=== PATIENT | female | born 1965 | race African-American/Black ===

== ENCOUNTER 2019-01-21 21:40 | Emergency (ER) | payer OTHER ==
[~2019-01-21] VITALS: Ht 157.5 cm; Wt 65.8 kg
[2019-01-21 21:51] VITALS: BP 141/89
== END 2019-01-21 22:30 | disposition home or self-care (01) ==
LOC: ER 21:40
DX: S50.12XA Contusion of left forearm, initial encounter (principal); X58.XXXA Exposure to other specified factors, initial encounter; Y92.89 Other specified places as the place of occurrence of the external cause; Y93.89 Activity, other specified; Y99.8 Other external cause status